=== PATIENT | male | born 1970 ===

== ENCOUNTER 2021-04-02 13:09 | Emergency (ER) | payer OTHER ==
--- NOTE | 2021-04-02 16:52 | EDM.PDOC ---
ED HPI GENERAL MEDICAL PROBLEM - General Chief Complaint: Respiratory Problem Stated Complaint: COVID POSITIVE/NOT GETTING BETTER Time Seen by Provider: 04/02/21 16:30 Source of Information: Reports: Patient, RN Notes Reviewed - History of Present Illness INITIAL COMMENTS - FREE TEXT/NARRATIVE: 50-year-old male diagnosed with Covid about a week ago with a positive test and given infusion therapy comes now because he continues with a cough body aches headaches generally not feeling well as diminished appetite. No other symptomatology. He is not particular short of breath as long as he does not mov e about or exert himself. He is eating having bowel and urine function no taste or smell changes yet - Related Data Allergies Allergy/AdvReac Type Severity Reaction Status Date / Time No Known Allergies Allergy Verified 04/02/21 13:59 Home Meds: Home Meds Albuterol Sulfate [Proair Respiclick] 90 mcg IH ASDIRECTED 03/25/21 [History] Doxycycline [Doxycycline Hyclate] 100 mg PO BID 03/25/21 [History] Ibuprofen 200 mg PO ASDIRECTED PRN 03/25/21 [History] Past Medical History Other Respiratory History: Covid diagnosed WednesdayMarch 23 Social & Family History - Tobacco Use Tobacco Use Status *Q: Never Tobacco User Second Hand Smoke Exposure: No - Caffeine Use Caffeine Use: Reports: Coffee Other Caffeine Use: 1 cup coffee per day - Alcohol Use Days Per Week of Alcohol Use: 1 Number of Drinks Per Day: 2 Total Drinks Per Week: 2 - Recreational Drug Use Recreational Drug Use: Yes ED ROS GENERAL - Review of Systems Review Of Systems: Comprehensive ROS is negative, except as noted in HPI. ED EXAM, GENERAL - Physical Exam Exam: See Below Free Text/Narrative:: 50-year-old male sitting quietly on the gurney periodic cough vital signs okay pulse ox dropping sometimes when he exerts HEENT shows eyes ears nose and throat appear to be normal Neck is supple Chest is got diffuse rales throughout both lung garzon with a regular rate and rhythm although rapid Abdomen soft active bowel sounds Skin extremities appear to be normal Neurologic physiologic Exam Limited By: No Limitations Course - Vital Signs Text/Narrative:: I was cussed with him the options including the possibility of ivermectin. He is already had an infusion therapy. At this juncture he would prefer to wait and see how he does for the next few days and return if he gets worse rather than doing further work-up which x-rays today. He wants to restart ivermectin before he thinks about taking that. Last Recorded V/S: Last Vital Signs Temp 35.8 C L 04/02/21 14:02 Pulse 86 04/02/21 14:02 Resp 20 04/02/21 14:02 BP 132/78 04/02/21 14:02 Pulse Ox 90 L 04/02/21 14:02 Departure - Departure Time of Disposition: 17:00 Disposition: Home, Self-Care 01 Condition: Good Clinical Impression: Short of breath on exertion, COVID - Discharge Information Referrals: PCP,None [Primary Care Provider] - Sepsis Event Note (ED) - Evaluation Sepsis Screening Result: No Definite Risk - Focused Exam Vital Signs: Vital Signs Temp Temp Pulse Resp BP Pulse Ox 04/02/21 14:02 35.8 C L 35.8 C L 86 20 132/78 90 L
== END 2021-04-02 17:13 | disposition home or self-care (01) ==
LOC: JP.ED 13:09
DX: U07.1 COVID-19 (principal)
CPT/HCPCS: 99284